=== PATIENT | male | born 1980 | race Caucasian/White ===

== ENCOUNTER → 2019-12-01 | Emergency (ER) | payer OTHER ==
[~2019-12-01] VITALS: Ht 188 cm; Wt 72.6 kg
[2019-12-01 09:53] VITALS: BP 96/62
--- NOTE | 2019-12-01 10:14 | NUR ---
Patient discharged in custody in stable condition. Written and verbal after care instructions given. Patient verbalizes understanding of instruction.
== END | disposition home or self-care (01) ==
LOC: ER 12:21
DX: F11.23 Opioid dependence with withdrawal (principal); Z98.890 Other specified postprocedural states